=== PATIENT | female | born 1955 | race Asian ===

== ENCOUNTER 2020-05-17 13:38 | Emergency (ER) | payer OTHER, MEDICAID ==
[~2020-05-17] VITALS: Ht 165.1 cm; Wt 62.6 kg
[2020-05-17 14:37] VITALS: Ht 165.1 cm; Wt 62.6 kg
[2020-05-17 19:28] VITALS: BP 167/77
== END 2020-05-17 21:06 | disposition home or self-care (01) ==
LOC: ED 13:38
DX: K56.41 Fecal impaction (principal); I10 Essential (primary) hypertension; Z90.49 Acquired absence of other specified parts of digestive tract; Z98.890 Other specified postprocedural states